=== PATIENT | female | born 1970 | race Two or more races ===

== ENCOUNTER 2016-04-22 15:49 | Emergency (ER) | payer BC ==
[2016-04-22 16:03] VITALS: BP 150/95
--- NOTE | 2016-04-24 18:33 | UC ---
Davonte Holman Karl, scribed for Keila Landers MD on 04/22/16 at 1723 . Abdominal Pain Female HPI - HPI Summary HPI Summary: Pt is a 45 y/o female that presents to [facility] c/o intermittent 5/10 RUQ pressure pain that has been building over a month but has increased significantly in the past 2 days. Pt stated that pain became the worst last night while trying to sleep and that it radiates to her right flank. Pt stated that sitting/riding in the car and eating fatty foods does slightly aggravates the pain.Pt denied urinary symptoms and vomiting but did report diarrhea with her other symptoms. Hx: uterine fibroids. - History of Current Complaint Chief Complaint: UCAbdominalPain Stated Complaint: ABDOMINAL PAIN Time Seen by Provider: 04/22/16 17:03 Hx Obtained From: Patient Hx Last Menstrual Period: 03/23/16 Onset/Duration: Gradual Onset, Lasting Weeks, Worse Since - last two days Timing: Intermittent Episodes Lasting: Severity Initially: Moderate Severity Currently: Moderate Pain Intensity: 5 - abd pain Pain Scale Used: 0-10 Numeric Location: Discrete At: RUQ Radiates: Yes Radiates to: Flank - right Character: Other - pressure Aggravating Factor(s): Other: - riding in car; sitting Associated Signs and Symptoms: Positive: Diarrhea. Negative: Fever, Urinary Symptoms, Vomiting Allergies/Adverse Reactions: Allergies Allergy/AdvReac Type Severity Reaction Status Date / Time No Known Allergies Allergy Verified 04/22/16 16:03 PMH/Surg Hx/FS Hx/Imm Hx Previously Healthy: Yes Endocrine History Of: Denies: Diabetes, Thyroid Disease Cardiovascular History Of: Denies: Cardiac Disorders, Hypertension Respiratory History Of: Denies: COPD, Asthma GI/ History Of: Denies: Ulcer, Gall Bladder Disease - Surgical History Surgical History: Yes Surgery Procedure, Year, and Place: eye surgery-infant - Family History Known Family History: Positive: Other - breast CA - mother, aunt - Social History Lives: With Family Alcohol Use: Occasionally Alcohol Amount: WINE Substance Use Type: None Smoking Status (MU): Never Smoked Tobacco - Immunization History Most Recent Tetanus Shot: within last year Review of Systems Constitutional: Negative Skin: Negative Eyes: Negative ENT: Negative Respiratory: Negative Cardiovascular: Negative Gastrointestinal: Abdominal Pain - RUQ, Diarrhea Genitourinary: Negative Motor: Negative Neurovascular: Negative Musculoskeletal: Negative Neurological: Negative Psychological: Negative All Other Systems Reviewed And Are Negative: Yes Physical Exam Triage Information Reviewed: Yes Appearance: Well-Appearing, Pain Distress - mild Vital Signs: Initial Vital Signs Temp 98.2 F 04/22/16 15:58 Pulse 93 04/22/16 15:58 Resp 16 04/22/16 15:58 BP 150/95 04/22/16 15:58 Pulse Ox 96 04/22/16 15:58 Vital Signs Reviewed: Yes Eyes: Positive: Conjunctiva Clear ENT: Positive: Normal ENT inspection Neck: Positive: Supple Respiratory: Positive: No respiratory distress Cardiovascular: Positive: RRR, Pulses Normal, Brisk Capillary Refill Abdomen Description: Positive: No Organomegaly, Soft, Other: - tender RUQ. Negative: CVA Tenderness (R), CVA Tenderness (L), Distended, Guarding, McBurney' s Point Tenderness, Peritoneal Signs, Pulsatile Mass Bowel Sounds: Positive: Present Musculoskeletal: Positive: Strength Intact, ROM Intact Neurological: Positive: Alert, Muscle Tone Normal Psychological Exam: Normal Skin Exam: Normal Abd Pain Female Course/Dx - Differential Dx/Diagnosis Differential Diagnosis: Gall Bladder Disease, Pancreatitis, Pneumonia, Renal Colic Provider Diagnoses: RUQ abdominal pain Discharge - Discharge Plan Condition: Stable Disposition: HOME Patient Education Materials: Cholecystitis (ED) Referrals: Emma Chatman NP [Primary Care Provider] - The documentation as recorded by the Davonte edward Karl accurately reflects the service I personally performed and the decisions made by , Keila Landers MD.
== END 2016-04-22 17:30 | disposition home or self-care (01) ==
LOC: UCEAST 15:49
DX: R10.11 Right upper quadrant pain (principal); R19.7 Diarrhea, unspecified
CPT/HCPCS: 99211; G0463

== ENCOUNTER 2017-04-01 12:36 | Emergency (ER) | payer BC ==
[2017-04-01 12:58] VITALS: BP 142/87
== END 2017-04-01 14:30 | disposition left against medical advice (07) ==
LOC: UCEAST 12:36
DX: R09.89 Other specified symptoms and signs involving the circulatory and respiratory systems (principal); Z53.21 Procedure and treatment not carried out due to patient leaving prior to being seen by health care provider